=== PATIENT | female | born 1985 | race African-American/Black ===

== ENCOUNTER 2021-05-07 08:58 | Emergency (ER) | payer OTHER ==
[~2021-05-07] VITALS: Ht 165.1 cm; Wt 99.3 kg
[2021-05-07 10:39] LABS: URINE BILIRUBIN NEGATIVE (Negative); URINE BLOOD NEGATIVE (Negative); URINE CLARITY CLEAR; URINE COLOR YELLOW; URINE GLUCOSE-RANDOM NEGATIVE (Negative); URINE KETONES NEGATIVE (Negative); URINE LEUKOCYTES-REFLEX NEGATIVE (Negative); URINE NITRITE-REFLEX NEGATIVE (Negative); URINE PROTEIN NEGATIVE (Negative); URINE SPECIFIC GRAVITY 1.015 (1.005-1.030); URINE UROBILINOGEN 0.2 E.U./dl (0.2-1.0)
[2021-05-07 10:49] LABS: ABSOLUTE LYMPHOCYTES 1.9 thou/uL (0.8-5.3); ABSOLUTE MONOCYTES 0.3 thou/uL (0.0-1.2); BASOPHILS 0.5 %; EOSINOPHILS 0.2 %; HEMATOCRIT 33.8 % (37.0-47.0); HEMOGLOBIN 11.7 gm/dL (12.0-15.0); LYMPHOCYTES 45.2 %; MCH 32.3 pg (26.0-34.0); MCHC 34.6 g/dL (28.0-37.0); MCV 93.4 fL (80.0-100.0); MONOCYTES 7.9 %; MPV 7.4 fl. (7.2-11.1); NUCLEATED RBCS 0 /100WBC; PLATELET COUNT* 235 thou/uL (150-400); POLYS 46.2 %; RBC 3.62 mil/uL (4.20-5.00); RDW-CV 13.6 % (10.5-14.5); WBC 4.3 thou/uL (4.0-11.0)
[2021-05-07 10:53] LABS: CALCIUM 8.6 mg/dL (8.5-10.1); CREATININE 0.8 mg/dL (0.6-1.3); POTASSIUM 3.5 mmol/L (3.5-5.1)
[2021-05-07 10:57] LABS: ALBUMIN 3.8 g/dL (3.4-5.0); TOTAL BILIRUBIN 0.3 mg/dL (<0.1-1.0); TOTAL PROTEIN 8.6 g/dL (6.4-8.2)
[2021-05-07] MEDS ORDERED: AUGMENTIN 875-1 EACH PO (13:51)
[2021-05-07] MEDS ORDERED: FLEXERIL PO (13:51)
[2021-05-07 14:04] VITALS: BP 125/60
== END 2021-05-07 14:05 | disposition home or self-care (01) ==
LOC: M.ERS 08:58
PROVIDERS: Nurse Practitioner Family
DX: J90 Pleural effusion, not elsewhere classified (principal); R10.9 Unspecified abdominal pain; Z90.49 Acquired absence of other specified parts of digestive tract; Z98.890 Other specified postprocedural states

== ENCOUNTER 2021-05-12 20:28 | Emergency (ER) | payer OTHER ==
[~2021-05-12] VITALS: Ht 165.1 cm; Wt 99.3 kg
[~2021-05-12 20:28] MED LIST: AUGMENTIN 875-1 EACH PO; FLEXERIL PO
[2021-05-12 20:48] LABS: URINE BILIRUBIN NEGATIVE (Negative); URINE BLOOD NEGATIVE (Negative); URINE CLARITY SL CLOUDY; URINE COLOR YELLOW; URINE GLUCOSE-RANDOM NEGATIVE (Negative); URINE KETONES NEGATIVE (Negative); URINE LEUKOCYTES-REFLEX NEGATIVE (Negative); URINE NITRITE-REFLEX NEGATIVE (Negative); URINE PROTEIN NEGATIVE (Negative); URINE SPECIFIC GRAVITY >= 1.030 (1.005-1.030); URINE UROBILINOGEN 0.2 E.U./dl (0.2-1.0)
[2021-05-12] MEDS ORDERED: NORCO5 PO ×2 (21:16→21:28)
[2021-05-12] MEDS ORDERED: MEDROLDOSEPACK PO (21:16)
[2021-05-12 21:38] VITALS: BP 131/54
== END 2021-05-12 21:39 | disposition home or self-care (01) ==
LOC: M.ERS 20:28
PROVIDERS: Physician Assistant
DX: M54.5 Low back pain (principal); Z98.890 Other specified postprocedural states; Z90.89 Acquired absence of other organs